=== PATIENT | male | born 1990 | race Caucasian/White ===

== ENCOUNTER 2017-12-20 08:36 | Emergency (ER) | payer BC ==
[~2017-12-20] VITALS: Ht 182.9 cm; Wt 95.0 kg
[2017-12-20 09:00] VITALS: BP 124/78
[2017-12-20 10:54] LABS: CLARITY URINE CLEAR (CLEAR); COLOR URINE YELLOW (YELLOW); KETONES URINE NEGATIVE (NEGATIVE); LEUKOCYTE ESTERASE URINE NEGATIVE (NEGATIVE); NITRITE URINE NEGATIVE (NEGATIVE); OCCULT BLOOD URINE NEGATIVE (NEGATIVE); PROTEIN URINE NEGATIVE (NEGATIVE); SPECIFIC GRAVITY URINE 1.036 (1.005-1.030); UROBILINOGEN URINE 0.2 E.U./dL (0.2-1.0)
[2017-12-21 07:18] LABS: HIV SCREEN 4G Non Reactive (Non Reactive)
[2017-12-22 04:14] LABS: CHLAMYDIA TRACHOMATIS NAA Negative (Negative); NEISSERIA GONORRHOEAE NAA Negative (Negative)
== END 2017-12-20 13:43 | disposition home or self-care (01) ==
LOC: ER 10:35
DX: Z11.3 Encounter for screening for infections with a predominantly sexual mode of transmission (principal); R03.0 Elevated blood-pressure reading, without diagnosis of hypertension
CPT/HCPCS: 81003; 86592; 87186; 87491; 87591; 99284